=== PATIENT | male | born 1960 | race Caucasian/White ===

== ENCOUNTER → 2018-08-27 14:03 | Outpatient (CLI) | payer BC ==
--- NOTE | 2018-08-28 14:51 | EC ---
PATIENT:RAMY BECK DATE OF SERVICE: 08/27/18 SEX: M MEDICAL RECORD: [id number] DATE OF : 64 [facility] AGE OF PATIENT: 58 ADMISSION DATE: 08/27/18 REFERRING PHYSICIAN: INTERPRETING PHYSICIAN: EFRA ANGLIN MD ECHOCARDIOGRAM REPORT ECHO CHARGES 4 ECHO COMPLETE Date: 08/27/18 CLINICAL DIAGNOSIS: SOB/MURMUR HTN ANGINA ECHOCARDIOGRAPHIC MEASUREMENTS (adult normal given) AC root (d.<3.7cm) 33.5 cm LV Septum d (<1.2 cm> 1.5 cm Valve Excursion 1.5 cm LV Septum (systole) 1.9 cm Left Atria (s.<4.0cm> 3.9 cm LVPW d(<1.2cm) 1.8 cm RV (d.<2.3cm) 4.9 cm LVPW (sytole) 1.9 cm LV diastole(<5.6CM) 5.0 cm MV E-F(>70mm/sec) cm LV systole 2.9 cm LVOT Diameter 1.8 cm MV exc.(>10mm) 1.4 cm Est.ejection fraction (50-75%) % DOPPLER: LVIT cm/sec A 99.0 cm/sec E 74.0 cm/sec LA cm/sec RVSP 17 mmHg LVOT 116 cm/sec AOP1/2T m/s Asc. Ao 142 cm/sec RVOT 83 cm/sec RA cm/sec PA 119 cm/sec AV Gradient Peak 8.08 mmHg AV Mean 4.32 mmHg AV Area 2.8 cm MV Gradient Peak 4.36 mmHg MV Mean 2.67 mmHg MV Area cm COMMENTS: Electrical Repairer: 2 ANANDA SOTO Electronic Installer: 3 Dr. Brunner TAPE# PACS Pericardial Effusion N DATE OF SERVICE: 08/27/2018 Adequate 2-D, color-flow and spectral Doppler, and M-mode. Mild LVH. LV internal dimensions are normal. Wall motion is normal. EF is greater than or equal to 55%. Aortic valve is tricuspid. No evidence of stenosis by Doppler interrogation. Left atrium is normal. Mitral valve shows no prolapse. Trace MR. Right-sided chambers are grossly normal. Trace TR. TRANSINT:[id number] Voice Confirmation ID: [id number] DOCUMENT ID: [id number] ECHOCARDIOGRAM REPORT [id number] EBONYEFRA POMPA MD at 1451 CC: [id number] DICTATION DATE: 08/28/18 1351 VP ORGANIZATIONAL DEVELOPMENT: 08/28/18 1411 DEP CLI 08/27/18 [id number] [place] [address]
== END | disposition home or self-care (01) ==
LOC: D.HCCARDIO 14:03
PROVIDERS: ATTEND Internal Medicine Interventional Cardiology
DX: R06.02 Shortness of breath (principal); R07.9 Chest pain, unspecified

== ENCOUNTER 2018-09-24 10:38 | Outpatient (CLI) | payer BC ==
[~2018-09-24] VITALS: Ht 193 cm; Wt 108.2 kg
--- NOTE | ~2018-09-24 | HEMODYNAMI ---
PATIENT:RAMY BECK MEDICAL RECORD: [id number] : 64 LOCATION:[facility] ADMISSION DATE: 09/24/18 Generatedon:09/24/201813:43 Patient name: RAMY BECK Patient #: [id number] SSN: : 1960 Date of study: 09/24/2018 Page: Of Hemodynamic Procedure Report Patient Data Patient Demographics Procedure consent was obtained First Name: RAMY Gender: Male Last Name: EBONY : 1960 Middle Initial: JONATHAN Age: 58 year(s) Patient #: [id number] Race: Unknown Additional ID: [id number] Contact details Address: [address] [address] State: [place] City: [place] Zip code: [address] Admission Admission Data Admission Date: 09/24/2018 Admission Time: 10:38 Procedure Procedure Types Cath Procedure Diagnostic Procedure LHC LHC w/Coronaries Procedure Description Procedure Date Procedure Date: 09/24/2018 Procedure Start Time: 13:28 Procedure End Time: 13:39 Procedure Staff Name Function Jonathan Singletary MD Performing Physician Praveen Flores RT Monitor Lori Galarza RT Scrub Samara Parker RN Nurse Procedure Data Cath Procedure Fluoroscopy Diagnostic fluoroscopy Total fluoroscopy Time: 2.4 time: 2.4 min min Diagnostic fluoroscopy Total fluoroscopy dose: 534 dose: 534 mGy mGy Contrast Material Contrast Material Type Amount (ml) Isovue 300 63 Entry Location Entry Primary Successful Side Size Upsize Upsize Entry Closure Succes sful Closure Location (Fr) 1 (Fr) 2 (Fr) Remarks Device Remarks Femoral Right 5 Fr Exoseal artery Diagnostic catheters Device Type Used For End Catheter Placement MULTIPACK JL 4.0 5Fr Left Coronary catheter Angiography MULTIPACK 3DRC 5Fr Right Coronary catheter Angiography DIAGNOSTIC AR MOD 5Fr Right Coronary Catheter ([id number]) Angiography MULTIPACK Pigtail 5 Fr LV Angiography catheter Procedure Complications No complications Procedure Medications Medication Administration Route Dosage Versed I.V. 2 mg Fentanyl I.V. 50 mcg 0.9% NaCl I.V. 100 ml/hr Oxygen etCO2 Nasal cannula 2 l/min Lidocaine 2% added to field 20 Heparin Flush Bag added to field 2 bags (1000units/500ml NS) Versed I.V. 2 mg Fentanyl I.V. 50 mcg Versed I.V. 2 mg Fentanyl I.V. 50 mcg Hemodynamics Rest Heart Rate: 66 (bpm) Pressure Samples Time Site Value (mmHg) Purpose Heart Use Rate(bpm) 13:34 LV 109/2,5 EDP 74 Gradients Valve Time Site Site Mean SEP/DFP Peak To Heart Use 1 2 (mmHg) (sec/min) Peak Rate (mmHg) (bpm) Aortic 13:34 LV AO 69 Snapshots Pre Cath Intra NCS Post Cath Vital Signs Time Heart Resp SPO2 etCO2 NIBP (mmHg) Rhythm Pain Sedation Rate (ipm) (%) (mmHg) Status Level (bpm) 13:17:25 67 18 98 29.2 179/91(141) NSR 0 (11) 10(A) , No pain 13:21:41 64 10 99 35.9 157/94(115) NSR 0 (11) 10(A) , No pain 13:26:01 66 15 96 41.2 135/84(115) NSR 0 (11) 10(A) , No pain 13:30:15 74 10 99 40.4 150/83(105) NSR 0 (11) 10(A) , No pain 13:34:29 69 13 97 42.7 134/81(100) NSR 0 (11) 10(A) , No pain 13:38:47 71 14 99 43.4 137/73(100) NSR 0 (11) 10(A) , No pain Medications Time Medication Route Dose Verified Delivered Reason Notes Eff ectiveness by by 13:27:16 Versed I.V. 2 mg Jonathan Pascual for Gemini Keith sedation MD B[place]GOS 13:27:22 Fentanyl I.V. 50 Jonathan Pascual for mcg [facility] sedation RN 13:29:55 0.9% NaCl I.V. 100 Jonathan Pascual used for ml/hr [facility] procedure MD [facility] 13:30:02 Oxygen etCO2 2 Jonathan Pascual used for Nasal l/min [facility] procedure cannula MD [place] 13:30:08 Lidocaine 2% added 20ml Jonathan Castillo for local to vial [facility] anesthetic field MD SINGH 13:30:12 Heparin Flush added 2 Jonathan Castillo used for Bag to bags [facility] procedure (1000units/500ml field MD SINGH NS) 13:30:16 Versed I.V. 2 mg Jonathan Castillo for [facility] John sedation MD SINGH 13:30:20 Fentanyl I.V. 50 Jonathan Freedory for [facility] sedation MD SINGH 13:34:27 Versed I.V. 2 mg Jonathan Castillo for [facility] sedation MD SINGH 13:34:31 Fentanyl I.V. 50 Jonathan Freedory for [facility] sedation MD SINGH Procedure Log Time Note 12:55:09 Diagnostic Cath Status : Elective 12:55:29 Praveen Suit RT(R) sent for patient. Start room use. 12:55:30 Time tracking: Regular hours (M-F 7:00 - 5:00) 12:55:36 Plan of Care:Hemodynamics will remain stable., Cardiac rhythm will remain stable., Comfort level will be maintained., Respiratory function will remain adequate., Patient/ family verbilizes understanding of procedure., Procedure tolerated without complication., Recovers from procedure without complications.. 13:15:59 Patient received from Pre/Post Procedure Room to CCL 1 Alert and oriented. Tansferred to table in Supine position. 13:16:00 Warm blankets applied, and cara hugger turned on for patient comfort. 13:16:01 Correct patient and procedure confirmed by team. 13:16:01 Correct patient and procedure confirmed by team. 13:16:03 Signed procedure consent form obtained from patient. 13:16:04 ECG and BP/O2 sat monitors applied to patient. 13:16:08 Vital chart was started 13:16:09 Baseline sample Acquired. 13:16:14 Rhythm: sinus rhythm 13:16:16 Full Disclosure recording started 13:16:21 H&P Date Dictated: 09/24/2018 Within 30 days and on chart., H&P Addendum completed by physician on day of procedure. (MUST COMPLETE FOR ALL OUTPATIENTS). 13:16:23 Pre-procedure instructions explained to patient. 13:16:24 Pre-op teaching completed and patient verbalized understanding. 13:16:26 Family in patients room. 13:16:27 Patient NPO since Midnight. 13:16:29 Is the patient allergic to Iodine/contrast media? No. 13:16:31 Was the patient premedicated? No 13:16:32 Is patient on blood thinner?No 13:16:33 Patient diabetic? No. 13:16:36 Previous problem with sedation/anesthesia? No ? 13:21:45 Snore? Yes 13:21:49 Sleep apnea? No 13:21:51 Deviated septum? No 13:21:56 Opens mouth fully? Yes 13:21:57 Sticks out tongue? Yes 13:21:59 Airway obstruction? No ? 13:22:40 Dentures? No ? 13:22:45 Pre procedure: right dorsailis pedis pulse 1+ Palpable, but thready & weak; easily obliterated 13:22:49 Modified Edmund's test Ulnar > 7 seconds. 13:22:54 Patient pain scale 0/10 ?. 13:22:58 IV patent on arrival in left antecubital with 0.9% NaCl at [facility]. 13:23:03 Right groin area was prepped with chlora-prep and draped in sterile fashion 13:23:04 Alarms reviewed by R. N. 13:23:04 Sharps counted by scrub and verified by R.N. 13:27:04 Physician arrived 13:27:05 --------ALL STOP TIME OUT------ 13:27:05 Final Timeout: patient, procedure, and site verified with staff and physician. All members of the team are in agreement. 13:27:07 Right groin site verified by team. 13:27:10 Maximum allowable Isovue 300 dose 300ml. Physician notified. (300ml for normal creatinines. For patients with creatinine of 1.7 or higher multiply weight(kg) x 5 divided by creatinine.) 13:27:14 Fire Safety Assessment: A--An alcohol-based skin anteseptic being used preoperatively., C--Open oxygen or nitrous oxide is being used., D--An ESU, laser, or fiber-optic light is being used. 13:27:16 Versed 2 mg I.V. was administered by Samara Parker RN; for sedation; 13:27:18 Physical assessment completed. ASA score P 2 - A patient with mild systemic disease as per Jonathan Gemini MD. 13:27:22 Fentanyl 50 mcg I.V. was administered by Samara Parker RN; for sedation; 13:27:28 Sedation plan: IV Moderate Sedation Medication:Versed, Fentanyl 13:27:55 Use device set Femoral Dx 13:27:56 ACIST Syringe (87798) opened to sterile field. 13:27:57 Bag Decanter (2002S) opened to sterile field. 13:27:57 Medline Cath Pack ([id number]) opened to sterile field. 13:27:57 DIAGNOSTIC WIRE .035 260cm J wire (295304) opened to sterile field. 13:27:59 ACIST Hand Control (07732) opened to sterile field. 13:27:59 ACIST Manifold (92966) opened to sterile field. 13:27:59 DIAGNOSTIC Multipack 5Fr catheter set ([id number]) opened to sterile field. 13:28:00 Tegaderm 4 x 4 (1626W) opened to sterile field. 13:28:02 SHEATH 5FR [place] (RDJ289) opened to sterile field. 13:28:05 Procedure started. 13:28:13 Local anesthetic to right femoral artery with Lidocaine 2% by Jonathan Singletary MD.INITIAL ACCESS ONLY 13:28:21 A 5 Fr sheath was inserted into the Right Femoral artery 13:28:25 Zero performed for pressure channel P1 13:28:37 Zero performed for pressure channel P1 13:28:44 Zero performed for pressure channel P1 13:28:47 Zero performed for pressure channel P1 13:29:04 A MULTIPACK JL 4.0 5Fr catheter was advanced over the wire and used for Left Coronary Angiography. 13:29:08 LCA angiography performed. 13:29:55 0.9% NaCl 100 ml/hr I.V. was administered by Samara Parker RN; used for procedure; 13:30:02 Oxygen 2 l/min etCO2 Nasal cannula was administered by Samara Parker RN; used for procedure; 13:30:08 Lidocaine 2% 20ml vial added to field was administered by Jonathan Singletary MD; for local anesthetic; 13:30:12 Heparin Flush Bag (1000units/500ml NS) 2 bags added to field was administered by Jonathan Singletary MD; used for procedure; 13:30:16 Versed 2 mg I.V. was administered by Jonathan Singletary MD; for sedation; 13:30:17 Catheter removed. 13:30:20 Fentanyl 50 mcg I.V. was administered by Jonathan Singletary MD; for sedation; 13:30:34 A MULTIPACK 3DRC 5Fr catheter was advanced over the wire and used for Right Coronary Angiography. 13:31:33 Catheter removed. 13:32:16 A DIAGNOSTIC AR MOD 5Fr Catheter (156148L) was advanced over the wire and used for Right Coronary Angiography. 13:32:22 RCA angiography performed. 13:33:18 Catheter removed. 13:33:26 A MULTIPACK Pigtail 5 Fr catheter was advanced over the wire and used for LV Angiography. 13:33:29 LV angiography performed. 13:34:25 LV gram done using CASTELAN 13:34:27 Versed 2 mg I.V. was administered by Jonathan Singletary MD; for sedation; 13:34:29 EF : 55 % 13:34:31 Fentanyl 50 mcg I.V. was administered by Jonathan Singletary MD; for sedation; 13:34:40 Catheter removed. 13:35:14 Sheath removed intact; hemostasis achieved with Exoseal to the Right Femoral artery. 13:35:17 Procedure ended.(Physican Out) 13:38:17 Contrast amount:Isovue 300 63ml. 13:38:26 Fluoroscopy time 02.40 minutes. 13:38:30 Fluoroscopy dose: 534 mGy 13:38:30 Flurop Dose total: 534 13:38:32 Sharps counted by scrub and verified by R.N. 13:38:33 Insertion/operative site no bleeding no hematoma. 13:38:37 Post-op/insertion site Right Femoral artery dressed using a 4 x 4 and Tegaderm. 13:38:45 Post right femoral artery:stable 13:38:49 Post Procedure Pulses reassessed and unchanged 13:38:57 Post procedure: right dorsailis pedis pulse 2+ Normal; easily identifiable; not easily obliterated. 13:39:00 Post procedure rhythm: sinus rhythm 13:39:02 Post procedure instruction explained to patient.Patient verbalizes understanding. 13:39:03 Procedure and supply charges have been captured, reviewed, submitted and are correct. 13:39:16 EXOSEAL 5Fr (EX500) opened to sterile field. 13:39:33 Procedure Complication : No complications 13:39:35 Vital chart was stopped 13:39:36 See physician's report for complete and final results. 13:39:38 Report given to Pre/Post Procedure Room. 13:39:42 Patient transfered to Pre/Post Procedure Room with Stretcher. 13:39:43 Procedure ended. 13:39:43 Full Disclosure recording stopped 13:39:46 End room use (Document Last) Device Usage Item Name Manufacture Quantity Catalog Hospital Part Current Minimal L ot# / Number Charge Number Stock Stock Serial# Code ACIST Acist 1 21311 [id number] 774440 175791 20 Syringe Medical (44226) Systems Inc Bag Microtek 1 2001S 414069 95825 043696 5 Decanter Medical Inc. () Medline Medline 1 [id number] 539057 44447 769077 5 Cath Pack ([id number]) DIAGNOSTIC St Chidi 1 270966 890767 736022 970771 30 WIRE .035 260cm J wire (849834) ACIST Hand Acist 1 17111 173064 092168 356209 5 Control Medical (30014) Systems Inc ACIST Acist 1 82099 557739 879207 056574 5 Manifold Medical (06667) Systems Inc DIAGNOSTIC Cardinal 1 BC6063 908395 03328 017520 30 Multipack Health 5Fr catheter set (MO4518) Tegaderm 4 3M 1 1626W 240972 093243 593279 5 x 4 (1626W) SHEATH 5FR Terumo 1 HNL238 035467 637680 858662 5 [place] (IAE660) MULTIPACK Cardinal 1 829350 5 JL 4.0 5Fr Health catheter MULTIPACK Cardinal 1 571896 5 3DRC 5Fr Health catheter DIAGNOSTIC Cardinal 1 [id number] 218904 940436 973211 15 AR MOD 5Fr Health Catheter (057735Y) MULTIPACK Cardinal 1 935715 5 Pigtail 5 Health Fr catheter EXOSEAL 5Fr Cardinal 1 EX500 722221 847058 860397 10 (EX500) Health Signature Audit [place] Stage Time Signature Unsigned Intra-Procedure 09/24/2018 Praveen Flores RT(R) 1:43:34 PM Signatures Monitor : Praveen Flores RT Signature : Date : Time : [address] [address] [place] [address]
[2018-09-24] MEDS ORDERED: ASPIRIN325 MG PO (10:49)
[2018-09-24] MEDS ORDERED: CARDIZEM CD180 MG PO (10:49)
[2018-09-24] MEDS ORDERED: LISINOPRIL40 MG PO (10:49)
[2018-09-24] MEDS ORDERED: CATAPRES0.1 MG PO (10:50)
[2018-09-24] MEDS ORDERED: HYDROCODON-ACE1 EA10 PO (10:50)
[2018-09-24 11:10] VITALS: BP 172/85; Ht 193 cm; Wt 108.2 kg
[2018-09-24 11:29] LABS: BASOPHILS 0.8 % (0-2); EOSINOPHILS 1.9 % (0-7); HEMATOCRIT 38.1 % (42.0-54.0); HEMOGLOBIN 13.3 g/dL (13.5-17.5); IMMATURE GRANULOCYTES 0.2 % (0-5); LYMPHOCYTES 31.7 % (15-50); MCHC 34.9 g/dL (31.0-37.0); MCV 88.8 fL (80.0-100.0); MEAN PLATELET VOLUME 9.2 fL (7.4-10.4); MONOCYTES 6.2 % (2-11); NEUTROPHILS 59.2 % (40-80); PLATELET COUNT 251 10x3/uL (130-400); RBC 4.29 10x6/uL (4.20-6.10); RDW 12.2 % (11.5-14.5); WBC 5.3 10x3/uL (4.8-10.8)
[2018-09-24 11:38] LABS: CALC OSMOLALITY 283 mosm/kg (275-300); CARBON DIOXIDE 27.8 mmol/L (21.0-32.0); CHLORIDE - SERUM 105 mmol/L (98-107); CREATININE - SERUM 0.8 mg/dL (0.6-1.3); GLUCOSE 106 mg/dL (74-106); POTASSIUM - SERUM 4.1 mmol/L (3.5-5.1); SODIUM 143 mmol/L (136-145); UREA NITROGEN 10 mg/dL (7-18); eGFR NON AFRICAN AMERICAN > 90 mL/min (90-120)
--- NOTE | 2018-09-24 14:03 | NUR ---
DRESSING IS CDI TO RIGHT GROIN, AREA IS SOFT AND NONTENDER. PT AWAKENS EASILY TO VERBAL STIMULI, DENIES ANY C/O CHEST PAIN OR NAUSEA. PEDAL PULSES PALPABLE. HOB IS FLAT, VSS. PARENTS AT BEDSIDE.
--- NOTE | 2018-09-24 14:52 | NUR ---
PT IS ALERT, DENIES ANY C/O PAIN OR NAUSEA. DRESSING IS CDI TO RIGHT GROIN, AREA IS SOFT AND NONTENDER. PEDAL PULSES PALPABLE. HOB IS FLAT, PARENTS AT BEDSIDE. CALL LIGHT IN REACH. VSS.
--- NOTE | 2018-09-24 15:20 | NUR ---
DRESSING CDI TO RIGHT GROIN, AREA IS SOFT AND NONTENDER. PEDAL PULSES PALPABLE. VSS, PT IS ALERT AND DENIES ANY C/O CHEST PAIN. PARENTS AT BEDSIDE, HOB ELEVATED 30 DEGREES, SANDWICH SERVED.
--- NOTE | 2018-09-24 15:36 | NUR ---
1520 DRESSING REMAINS CDI TO RIGHT GROIN, AREA IS SOFT AND NONTENDER PT LYNSEY SANDWICH WITH NO C/O NAUSEA. HOB IS FULLY ELEVATED. 1535 DRESING REMAINS CDI, IV DC'D WITH CATH INTACT. DC INSTRUCTIONS REVIEWED WITH PT AND PARENTS WHO VERBALIZE UNDERSTANDING.
--- NOTE | 2018-09-24 15:56 | NUR ---
PT HAS DRESSED FOR DC TO HOME WITH ASSIST. DENIES ANY C/O. PT ESCORTED TO PRIVATE AUTO VIA WC BY NURSE WITH MOTHER DRIVING HIM HOME. PT HAS ALL PERSONAL BELONGINGS AND DC INSTRUCTIONS AT TIME OF DISCHARGE.
--- NOTE | 2018-09-25 13:17 | OP ---
PATIENT NAME: RAMY BECK MEDICAL RECORD: [id number] :64 LOCATION:[facility] ADMISSION DATE: SURGEON: EFRA ANGLIN MD DATE OF OPERATION: 09/24/2018 PROCEDURE: Left heart catheterization, selective coronary angiography, right femoral artery approach. CATHETERS: A 5-Kazakh sheath, 5/4 left and right Leelee, 5/4 pig. The patient was well tolerated. The patient returned to short, sheath removed. ExoSeal device placed. FINDINGS: Left ventriculography in 30-degree CASTELAN view: Normal wall motion, normal systolic function. CORONARY ANATOMY: LEFT MAIN: Left main is free of disease. LAD: Free of disease in the diagonal system. CIRCUMFLEX: Free of disease in the marginal system. RIGHT CORONARY ARTERY: Dominant artery, gives rise to PDA, free of disease. IMPRESSION: Normal LV systolic function, normal coronary anatomy. TRANSINT:[id number] Voice Confirmation ID: [id number] DOCUMENT ID: [id number] EFRA ANGLIN MD at 1317 CC: [id number] DICTATION DATE: 09/24/18 1341 TANK HOUSE SUPERVISOR: 09/24/18 1546 DEP CLI 09/24/18 [facility] [address] [place] [address]
== END 2018-09-24 15:45 | disposition home or self-care (01) ==
LOC: D.CATH 10:38
PROVIDERS: ATTEND Internal Medicine Interventional Cardiology
DX: R06.02 Shortness of breath (principal); R07.9 Chest pain, unspecified; Z01.812 Encounter for preprocedural laboratory examination